=== PATIENT | female | born 1940 ===

== ENCOUNTER 2024-06-14 11:22 | Inpatient (IN) | payer MEDICARE, OTHER, SELFPAY ==
[2024-05-21 13:17] VITALS: BMI 25.0
[2024-05-21 14:29] LABS: Hematocrit 44.2 % (37.0-47.0); Hemoglobin 14.4 g/dL (12.0-16.0); Mean Corp Hgb Conc. 32.6 g/dL (33.0-37.0); Mean Corpuscular Hgb 31.2 pg (27.0-31.0); Mean Corpuscular Volume 95.7 fL (81.0-99.0); Mean Platelet Volume 9.3 fL (7.4-10.4); Platelet Count 265 10^3/uL (130-400); Red Blood Cell Count 4.62 10^6/uL (4.20-5.40); Red Cell Dist. Width 12.8 % (11.5-14.5); White Blood Cell Count 4.9 10^3/uL (4.8-10.8)
[2024-05-21 14:42] LABS: ALT (SGPT) 18 U/L (0-35); AST (SGOT) 26 U/L (14-36); Albumin 4.8 g/dl (3.5-5.0); Alkaline Phosphatase 69 U/L (38-126); Blood Urea Nitrogen 28 mg/dl (7-17); Calcium 10.2 mg/dl (8.4-10.2); Carbon Dioxide 27 mmol/L (22-30); Chloride 102 mmol/L (98-107); Estimated Creatinine Clearance 48 ml/min; Glucose 91 mg/dl (70-99); Potassium 4.8 mmol/L (3.5-5.1); Sodium 141 mmol/L (135-145); Total Bilirubin 0.5 mg/dl (0.2-1.3); Total Protein 7.2 g/dl (6.3-8.2); eGFR > 60.00
[2024-05-22 10:22] LABS: Glycohemoglobin (HgbA1c) 5.3 % (4.0-5.6)
--- NOTE | 2024-06-03 10:34 | VNURNOTE ---
[facility] liaison called patient at both numbers to discuss pre-op SDS plans. Left message, referral in [facility].
--- NOTE | 2024-06-03 10:46 | VNURNOTE ---
Patient is scheduled for an elective R TKA on 06/14/24- she is a same day patient with Dr Lovett. Spoke with patient prior to surgery. Patient reports she will be staying overnight and has outpt PT at [facility] scheduled on 06/16.
Introduced role of [facility] Liaison. Patient reports that she lives with her spouse in a MULTI story home. There is a first floor set up. Her spouse and son (intermittenly) will be with her post operatively and at home.
Plan: No [facility] since patient is staying overnight. She will go to [facility] outpt PT on 06/16
[facility] Intake updated on cancelled referral
[2024-06-08 10:36] VITALS: BMI 25.0
[2024-06-14] VITALS (8 sets, daily range): BP systolic 124–155; BP diastolic 64–79; BMI 25.0
[2024-06-14] MEDS: CELEBREX 200 MG PO (12:29)
[2024-06-14] MEDS: TYLENOL 650 MG PO ×2 (12:29→21:21)
--- NOTE | 2024-06-14 15:07 | W.PN.UPDATE ---
Update Note
Progress Note Update
R knee OA s/p R TKA w/ Dr Lovett 06/14/24
- s/p L TKA, 2013, by Dr Chen
DVT prophylaxis - ASA, b/l venous foot pumps
Severe N/V w/ anesthesia previously - start daily PPI
- Compazine and Zofran prn
- Consider Scopolamine patch
- Previously tolerated [place] over Oxycodone and Tylenol w/ Codeine
HTN - + parameters - monitor BP
Chronic constipation - add MOM HS to bowel regimen of Colace and Senna
Hypercholesterolemia
Moderate AI
Mild MR
Venous varicosities
Hypothyroidism
Skin CA
Insomnia
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
[2024-06-14] MEDS: DILAUDID 0.5 MG IV ×2 (17:19→17:26)
--- NOTE | 2024-06-14 18:15 | PTCARENOTE ---
Received patient from PACU at 1815. Patient is AAOx3, drowsy, but arousable. Patient c/o right ankle burning. Right ankle assessed and appears WNL, skin intact, +pp. Patient c/o nausea, compazine given. Patient tolerating sips and crackers. Patient
refused PACU dose of [place]. Call ramirez in reach, ice to right knee.
[2024-06-14] MEDS: NORMOSOL-R/PLASMALYTE-A 1000 IV (18:18)
[2024-06-14] MEDS: ASPIRIN 325 MG PO (18:21)
[2024-06-14] MEDS: PROTONIX 40 MG PO (18:22)
[2024-06-14] MEDS: COMPAZINE 5 MG PO (18:35)
[2024-06-14] MEDS: SENOKOT PO (20:00)
[2024-06-14] MEDS: COLACE PO (20:00)
[2024-06-14] MEDS: BACTROBAN 2% OINTMENT NASAL (20:00)
[2024-06-14] MEDS: DECADRON 4 MG PO (22:00)
[2024-06-14] MEDS: ANCEF 5 IV (22:00)
--- NOTE | 2024-06-14 23:21 | PTCARENOTE ---
Pt Nausea has subsided in the past hour, able to tolerate small portions of food and some medications without nausea and vomiting. Pt up to bedside commode to void, able to make needs known.
[2024-06-15] MEDS: NORCO 5/325 1 TABLET PO ×3 (00:13→08:40)
[2024-06-15 04:00] VITALS: BP 97/60
[2024-06-15] MEDS: SYNTHROID 50 MCG PO (05:14)
[2024-06-15] MEDS: ANCEF 5 IV (05:14)
[2024-06-15 07:23] VITALS: BP 100/47
[2024-06-15] MEDS: SENOKOT 17.2 MG PO (08:26)
[2024-06-15] MEDS: CELEBREX 200 MG PO (08:26)
[2024-06-15] MEDS: ASPIRIN 325 MG PO (08:26)
[2024-06-15] MEDS: PROTONIX 40 MG PO (08:26)
[2024-06-15] MEDS: COLACE 100 MG PO (08:27)
[2024-06-15] MEDS: BACTROBAN 2% OINTMENT 1 APPLIC NASAL (08:27)
[2024-06-15] MEDS: DECADRON 4 MG PO (08:27)
--- NOTE | 2024-06-15 09:23 | W.PN.ORTHO ---
Today's Communication / Plan
-
Await PT and OT recs.
D/c later today if remaining clinically stable.
Assessment
.
Distal Motor Intact: Yes
Dressing:
Small areas of old bleeding along the incision.
Assessment:
R knee OA s/p R TKA w/ Dr Lovtet 06/14/24
- s/p L TKA, 2013, by Dr Chen
DVT prophylaxis - ASA, b/l venous foot pumps
Nausea overnight w/ h/o severe N/V d/t anesthesia previously - daily PPI while inpatient
- Compazine and Zofran prn; has Rx for Zofran upon d/c
- Consider Scopolamine patch
- [place] tolerated over Oxycodone and Tylenol w/ Codeine
- Nausea resolved by POD 1
HTN - + parameters - BPs stable
Chronic constipation - added MOM HS to bowel regimen of Colace and Senna
- Pt prefers to use home Metamucil over MOM upon d/c
Hypercholesterolemia
Moderate AI
Mild MR
Venous varicosities
Hypothyroidism
Skin CA
Insomnia
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
Plan
.
Surgery / Date: R TKA w/ Dr Lovett 06/14/24
DVT Prophylaxis: Aspirin
Activity:
Out of bed.
PT/OT
Discharge Plan: Home w/ Outpatient PT
Subjective
.
.:
Patient resting comfortably in her bed.
R knee pain reportedly well tolerated w/ [place] prn.
Nausea overnight improved w/ Compazine.
Eager for potential d/c today.
Vital Signs and Labs
.
Vital Signs and Labs:
Lab Results
05/21/24 12:54
05/21/24 12:53
Temp Pulse Resp BP Pulse Ox
98.3 F 76 16 100/47 94
06/15/24 07:23 06/15/24 07:23 06/15/24 07:23 06/15/24 07:23 06/15/24 07:23
Non-invasive Hgb result: 14.9
Physical Exam
-
HEENT: No pallor, cyanosis, or jaundice. Throat clear.
NECK: Supple. No JVD.
RESPIRATORY: Lungs clear to auscultation.
CVS: S1, S2 normal. RRR.�
ABDOMEN: Soft, non-tender. No distension.
EXTREMITIES: Expected post-surgical R knee edema. Strength equal, no calf pain with palpation/dorsiflexion. Calves soft.
ELEMENTARY MATH TUTOR: AOx3. No focal deficits. brim flexer grossly intact
[2024-06-15 10:54] VITALS: BP 125/75; PULSE 70; O2SAT 95
--- NOTE | 2024-06-15 11:29 | W.DS.TRANS ---
DC Summary - Sound Person
-
Discharge Instructions:
Sleep Apnea Risk Low
Discharge Diagnosis/Procedures R knee OA s/p R TKA w/ Dr Lovett 06/14/24
Diet Regular
Activity As tolerated,With Walker
Driving Restrictions Not until seen by your Dr
Bathing Restrictions OK to Shower
Other Services PT
Wound Care Dressing to be removed 1 week post-surgery.
Instructions:
Stand-Alone Forms: Total Hip/Knee Replacement D/C
Changes to Home Medications: Yes
Discharge Medications:
DC Medications w/original date entered in [employer]
atorvastatin 10 mg tablet 10 mg PO NOON 06/08/24
cholecalciferol (vitamin D3) 25 mcg (1,000 unit) tablet (Vitamin D3) 25 mcg PO NOON 06/08/24
levothyroxine 50 mcg tablet 50 mcg PO DAILY 06/08/24
multivitamin 1 tab PO DAILY 06/08/24
mupirocin 2 % topical ointment 1 applic topical BID 06/08/24
acetaminophen 325 mg tablet 650 mg (2 x 325 mg) PO Q4HPRN PRN mild pain #60 tabs 06/15/24
aspirin 325 mg tablet 325 mg PO DAILY #30 tabs 06/15/24
celecoxib 100 mg capsule (Celebrex) 100 mg PO BID #30 caps 06/15/24
dexamethasone 4 mg tablet 4 mg PO Q12H Anti-inflammatory #7 tabs 06/15/24
docusate sodium 100 mg capsule 100 mg PO BID #30 caps 06/15/24
hydrocodone 5 mg-acetaminophen 325 mg tablet 1 - 2 tab PO Q6H PRN moderate-severe pain #30 tabs 06/15/24
irbesartan 150 mg tablet 150 mg PO NOON #1 tab 06/15/24
ondansetron HCl 4 mg tablet 4 mg PO Q6H PRN nausea and vomiting #30 tabs 06/15/24
psyllium husk 0.4 gram capsule (Metamucil) 0.4 g PO DAILY #14 caps 06/15/24
sennosides 8.6 mg tablet (Senna Laxative) 17.2 mg (2 x 8.6 mg) PO BID #30 tabs 06/15/24
Home Medication Changes
acetaminophen 325 mg tablet 650 mg (2 x 325 mg) PO Q4HPRN PRN mild pain #60 tabs 06/15/24
aspirin 325 mg tablet 325 mg PO DAILY #30 tabs 06/15/24
celecoxib 100 mg capsule (Celebrex) 100 mg PO BID #30 caps 06/15/24
dexamethasone 4 mg tablet 4 mg PO Q12H Anti-inflammatory #7 tabs 06/15/24
docusate sodium 100 mg capsule 100 mg PO BID #30 caps 06/15/24
hydrocodone 5 mg-acetaminophen 325 mg tablet 1 - 2 tab PO Q6H PRN moderate-severe pain #30 tabs 06/15/24
ondansetron HCl 4 mg tablet 4 mg PO Q6H PRN nausea and vomiting #30 tabs 06/15/24
psyllium husk 0.4 gram capsule (Metamucil) 0.4 g PO DAILY #14 caps 06/15/24
sennosides 8.6 mg tablet (Senna Laxative) 17.2 mg (2 x 8.6 mg) PO BID #30 tabs 06/15/24
Pending Results: No
[2024-06-15 11:37] VITALS: BP 115/64; PULSE 78; O2SAT 94
--- NOTE | 2024-06-15 12:06 | CM ---
Met with pt at bedside
Pt reports she lives with her in a 2 story home; 1 step to enter, 13 steps to 2nd fl. Has 1/2 bath on FF
Pt reports independent with ADL's, has assist with fabric worker foreman. ambulates with no device, drives
DME - rolling walker, single point cane, raised toilet seat, shower rail
SNF - no past hx
HH - [facility] in past
Has ride at discharge - son
PCP - Marixa Meléndez
Pharm - [facility] [place]
Plan is for outpatient PT at [facility] [place]. Has appt tomorrow at 11AM. Has Rx. to transport
Discussed IMM
Plan - home with outpatient PT
[2024-06-15] MEDS: VITAMIN D3 (cholecalciferol) 25 MCG PO (12:21)
[2024-06-15] MEDS: LIPITOR 10 MG PO (12:21)
[2024-06-15 12:31] VITALS: BP 114/68
== END 2024-06-15 13:55 | disposition home or self-care (01) | DRG 470 ==
LOC: 2 SOUTH 11:22
PROVIDERS: ADMITTING PHYSICIAN Specialist; FAMILY PHYSICIAN Family Medicine
PROC: 0SRC0J9 Replacement of Right Knee Joint with Synthetic Substitute, Cemented, Open Approach (ICD-10-PCS; 2024-06-14)
DX: M17.11 Unilateral primary osteoarthritis, right knee (principal); E03.9 Hypothyroidism, unspecified; E78.00 Pure hypercholesterolemia, unspecified; Z79.890 Hormone replacement therapy; Z79.899 Other long term (current) drug therapy; Z96.652 Presence of left artificial knee joint; Z91.041 Radiographic dye allergy status
CPT/HCPCS: 36415; 73560; 80053; 83036; 85027; 87070; 97110; 97116; 97162; 97166; 97530; 97535; C1776